=== PATIENT | female | born 1970 | race Caucasian/White ===

== ENCOUNTER → 2020-07-06 11:36 | Outpatient (CLI) | payer OTHER, SELFPAY ==
--- NOTE | 2020-07-06 11:38 | DI.US.S_ITS ---
PROCEDURE: US PELVIC COMPLETE INDICATIONS: Pelvic pain and hematuria, reported uterine ablation approximately 18 months ago. TECHNIQUE: Real-time scanning was performed of the pelvic organs, with image documentation. Additional endovaginal scanning was necessary due to incomplete visualization of the adnexal and endometrial structures by transabdominal scanning. COMPARISON: None. FINDINGS: Uterus: Uterus is normal in size at 6.2 x 6.8 x 7.8 cm. The endometrium does not demonstrate a normal morphology, associated with history of prior endometrial ablation. Mildly echogenic Alman genius material within the endometrial canal measures up to 2.9 x 3.2 x 5.2 cm. There is peripheral blood flow around this material but not within. Its exact etiology is indeterminate. Ovaries: The right ovary measures 3.1 x 1.7 x 1.8 cm and the left measures 2.2 x 2.8 x 1.3 cm. There is a follicular cyst on the right measuring 1.7 cm. Other: No pathologic free abdominal or pelvic fluid. IMPRESSION: Homogeneous hyperechoic material within the endometrial canal is unusual in appearance despite history of endometrial ablation. This could represent blood clot, and contains no visualized internal blood flow. Urine 2 oz may be warranted. MR scanning with contrast also may be warranted to obtain additional anatomic detail. The likelihood of a single blood clot remaining homogeneous from the original reported endometrial ablation 18 months ago is considered very low. A more recent blood clot could produce this appearance. Dictated by: Derrick Small M.D. on 07/06/2020 at 14:02 Approved by: Derrick Small M.D. on 07/06/2020 at 14:07
--- NOTE | 2020-07-06 11:38 | DI.US.S_ITS ---
PROCEDURE: US RENAL COMPLETE INDICATIONS: Pelvic pain and hematuria TECHNIQUE: Real-time scanning was performed of the kidneys and bladder, with image documentation. COMPARISON: None. FINDINGS: Kidneys: Kidneys are normal in size. Right kidney measures 10.8 cm long; left kidney measures 11.9 cm long. Right renal cortical thickness is 1.4 cm; left renal cortical thickness is 1.6 cm. Renal cortical echotexture is normal. No hydronephrosis or nephrolithiasis. No suspicious solid mass lesions. Bladder: Pre-void bladder volume is 291 mL. Post-void residual is 0 mL. Pre-void images demonstrate no intraluminal masses or stones. On pre-void images, bilateral ureteral jets are noted with color Doppler interrogation. (Of note, ureteral jets may not be detectable in up to 25% of cases due to insufficient differences in specific gravity between ureteral and bladder urine). Miscellaneous: No free pelvic fluid. Partially visualized liver mass is noted. IMPRESSION: 1. No visualized obstruction or stones. 2. Partially visualized liver mass. If further evaluation of this region is required, abdominal ultrasound or CT abdomen is recommended. Dictated by: Yamileth Velasquez M.D. on 07/06/2020 at 12:13 Approved by: Yamileth Velasquez M.D. on 07/06/2020 at 13:22
[2020-07-06 13:34] LABS: TSH w/ Reflex to FT4 1.76 uIU/mL (0.47-4.68)
[2020-07-06 15:43] LABS: Follicle Stimulating Hormone 7.61 mIU/mL
== END ==
PROVIDERS: PCP Family Medicine; Referring Provider Family Medicine; Visit Provider Family Medicine
DX: N91.2 Amenorrhea, unspecified (principal); R10.2 Pelvic and perineal pain; R31.9 Hematuria, unspecified
CPT/HCPCS: 36415; 76770; 76830; 76856; 83001; 83002; 84443

== ENCOUNTER → 2020-11-18 08:03 | Outpatient (CLI) | payer OTHER, SELFPAY ==
[2020-11-18 09:08] LABS: COVID19 -Nasal RAPID Negative (Negative)
== END ==
PROVIDERS: PCP Family Medicine; Visit Provider Obstetrics & Gynecology
DX: Z01.812 Encounter for preprocedural laboratory examination (principal); Z20.822 Contact with and (suspected) exposure to COVID-19
CPT/HCPCS: 87635

== ENCOUNTER 2020-11-18 08:14 | Day surgery (SDC) | payer OTHER, SELFPAY ==
[2020-11-12 14:30] VITALS: BMI 30.2
[2020-11-18] VITALS (17 sets, daily range): BP systolic 106–138; BP diastolic 60–83; PULSE 69–98; RESP 8–96; TEMP 36.4–36.8; O2SAT 10–99; BMI 30.2
--- NOTE | 2020-11-18 | PATH_ITS ---
[facility] Accession Number: [id number] . 01 Material submitted: . uterus - UTERUS AND BILATERAL FALLOPIAN TUBES . 02 Diagnosis: Uterus and Bilateral Fallopian Tubes, Laparoscopic Supracervical Hysterectomy and Bilateral Salpingectomy (Weight 42 grams): Portions of disordered proliferative endometrium; negative for glandular hyperplasia, cytologic atypia, or malignancy. Myometrium with no significant histomorphologic abnormality. Uterine serosa with no significant histomorphologic abnormality. Fallopian tubes x2 with scattered benign paratubal cysts (1-5 mm); negative for atypia or malignancy. [facility] 11/22/2020 1309 Local . 02 Electronically signed: . Fransisca Solorzano MD, Pathologist NPI- [id number] . 01 Gross description: . The specimen is received in formalin, labeled uterus and both tubes and consists of a morcellated uterus weighing 42 grams and measuring 12.0 x 11.0 x 4.5 cm in aggregate. A cervix is not identified. The serosa is velez-pink and smooth. The velez-pink endometrium measures 0.1 cm in thickness. The myometrium is velez-pink and trabeculated. Also received are two detached fallopian tubes measuring 6.0 cm in length by 0.8 cm in diameter and 7.9 cm in length by 1.0 cm in diameter. The serosa is velez-pink to pink-purple and smooth with multiple paratubal cysts ranging from 0.1-0.5 cm. Sectioning reveals velez-pink mucosa and a stellate lumen measuring 0.3 cm in diameter. Wardrobe Specialist sections are submitted. . A1-A4: Wardrobe Specialist uterus. A5: [place] fallopian tubes, central cross sections and bisected fimbria. A6-A7: Longer fallopian tube, central cross sections and bisected fimbria. (EA:[id number]) /MRV 11/19/2020 1109 Local . 02 Pathologist provided ICD-10: N99.85, N94.6 . 02 CPT . 780623 Performed at: 01 [facility] [address] [id number] MD Jaquan Bernal MD Phone: [phone] Performed at: [address] [place] [id number] [place] [id number] MD Guillermina Fischer MD Phone: [phone]
--- NOTE | 2020-11-18 09:12 | PM.PREOP ---
Pre-operative Note COVID-19 COVID-19 status: Negative Result date/Date tested (Pos, Neg/Pending): 11/18/20 Interval Note History & Physical reviewed/Exam performed by Physician: Yes Changes to H&P: No H&P completed within 30 days and has changed as indicated here:: 11/17/20
[2020-11-18] MEDS: LACTATED RINGERS 1,000 ML 100 ML IV ×2 (09:54→11:30)
[2020-11-18] MEDS: CEFAZOLIN VIAL 2 GM in SODIUM CHLORIDE 0.9% 100 ML 200 ML IV (10:15)
[2020-11-18] MEDS: BUPIVACAINE 0.5% (PF) VIAL 30 ML INJ (10:46)
[2020-11-18] MEDS: EPINEPHrine 1 MG/ML 0.15 MG INJ (10:47)
--- NOTE | 2020-11-18 10:49 | SUR.OPER ---
Lithotomy on padded OR bed. [place] Pad Positioner under torso. Head on pillow, arms padded and tucked at sides. Legs secured in padded yellow fins stirrups.
[2020-11-18] MEDS: ROPIVACAINE 0.2% PF 2 MG/ML 10ML AMP 20 ML INJ (10:53)
[2020-11-18] MEDS: fentaNYL 100 MCG/2 ML INJ IV ×2 (12:03→12:11)
--- NOTE | 2020-11-18 12:08 | SUR.PHASEI ---
Patient from OR at [address] Barajas on room air in bed after general anesthesia. Breathing unassisted. Check in by Evelyn Licea RN and this Rn assumed care at 1155 with anesth still at bedside.
--- NOTE | 2020-11-18 12:08 | PM.GYNOP.1 ---
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 Pelvic pain Post-op diagnosis: same Procedure & Clinicians Procedure: Procedures Operation Date: 11/18/20 09:45 Actual Procedure Side Surgeon p Laparoscopic Supracervical Hysterectomy & bilateral salpingectomy Graciela Thurman MD Indications: Severe dysmenorrhea Pelvic pain Post endometrial ablation syndrome Surgeon: Graciela Thurman Correspondence Analyst: Devan Giron Anesthesia Type: General and Local Operative Notes Findings: 8 week size anteverted uterus Normal tubes and ovaries Normal liver and gallbladder Normal appendix Closure Type: primary Specimen(s): left tube, right tube and uterus Applied: catheter (Removed at the end of the case) Estimated blood loss (mL): 25 Blood products transfused: none Procedure in detail: The patient was taken to the operating room where she was placed in the dorsal supine position. After adequate general endotracheal anesthesia was achieved, she was placed in the dorsal lithotomy position, and prepped and draped in the usual sterile fashion. A timeout was performed. A bivalve speculum was placed into the vagina and the anterior lip of the cervix grasped with a single-tooth tenaculum. The cervical os was sequentially dilated until the ZUMI uterine manipulator could pass easily into the endometrial cavity. The single-tooth tenaculum was removed from the anterior lip of the cervix, and the bivalve speculum was removed from the vagina. Attention was then turned to the abdomen where 6 mL of half percent Marcaine with epinephrine were injected in the umbilical fold. A 5 mm incision was made. The Verhees needle was placed into the peritoneal cavity, and its placement confirmed by aspiration and drop test. The Verhees needle was removed. A 5 mm trocar was placed without difficulty. 2 other incisions were made midway between the pubic symphysis and umbilicus after 5 mL of half percent Marcaine with epinephrine were injected. These were 5 mm incisions. Two 5 mm trochars were placed under direct visualization. The right tube was grasped with an atraumatic grasper. Using the plasma kinetic with settings of 40 W the mesosalpinx was cauterized and cut all the way down to the cornua of the uterus. The cornua of the uterus was then grasped with an atraumatic grasper. The utero-ovarian ligaments were cauterized and cut. The round ligament and broad ligament was cauterized and cut with plasma kinetic. Hemostasis was achieved. The bladder flap was created using the plasma kinetic with cautery and cut care home across. The uterine arteries on the right side were extensively cauterized with plasma kinetic. All of this was repeated on the left side. The remainder of the bladder flap was created using the plasma kinetic, and the bladder taken down off the lower uterine segment and cervix. Using the [place], the cervix was amputated from the uterus 2 cm above the uterosacral ligaments, after the ZUMI uterine manipulator was removed from the uterus. There was a small amount of bleeding noted from the posterior edge of the cervix, and this was cauterized for hemostasis. A sponge stick was placed into the vagina. 6 mL of half percent Marcaine with epinephrine were injected above the pubic symphysis. A 12 mm trocar was placed. An Endobag was placed through the suprapubic trocar and the uterus and tubes were placed into the Endobag. The trocar was removed. The Arley was placed into the endobag. The uterus was hand morcellated in approximately 10 pieces. The Endobag was removed from the peritoneal cavity. The pelvis was copiously irrigated with warm normal saline. No bleeding was noted. 20 cc of 0.2% ropivacaine were placed over the pedicles. The instruments were removed from the abdomen. The CO2 was allowed to escape. The suprapubic incision was closed on the fascia with 0 Vicryl. All of the incisions were closed with 4-0 Biosyn in a subcuticular fashion. The moistened sponge stick was removed from the vagina. Sponge, lap, and instrument counts were correct x-2. The patient tolerated the procedure well, and was taken to PACU in stable condition. Complications: none Post-operative Condition: stable Disposition: PACU Plan for aftercare: Home after recovery
--- NOTE | 2020-11-18 12:13 | SUR.PHASEI ---
Dr Barajas to bedside. Updated on patient pain level 10/19. See new order for Dilaudid IV
[2020-11-18] MEDS: ACETAMINOPHEN 325 MG TABLET 650 MG PO (12:25)
[2020-11-18] MEDS: OXYCODONE IR 5 MG TABLET PO ×2 (12:26→12:58)
[2020-11-18] MEDS: HYDROMORPHONE 2 MG INJ IV ×8 (12:30→13:54)
[2020-11-18] MEDS: ONDANSETRON 4 MG/2 ML INJ IV (13:20)
--- NOTE | 2020-11-18 16:14 | SUR.PHASEII ---
Late entry: Pt assisted to BR, steady when up, no bleeding on peripad, no extension of drainage on dressings. Voided. Left whn ready left in stable condition. D/c done by BECKIE Hudson
--- NOTE | 2020-11-18 16:27 | PC.NURSE ---
Discharged from PACU by PRINT PRODUCTION MANAGER, orders not acknowledged. This RN removed patient from room according to time of departure. Patient was not physically in room 213 at discharge.
== END 2020-11-18 14:45 | disposition home or self-care (01) ==
LOC: OR 08:19 → AC 08:21
PROVIDERS: PCP Physician Assistant Medical; Referring Provider Obstetrics & Gynecology; Visit Provider Obstetrics & Gynecology
PROC: 0UT94ZL Resection of Uterus, Supracervical, Percutaneous Endoscopic Approach (ICD-10-PCS; CPT 58542; principal; 2020-11-18 09:45)
DX: N99.85 Post endometrial ablation syndrome (principal); N94.6 Dysmenorrhea, unspecified; Z20.822 Contact with and (suspected) exposure to COVID-19; Z34.83 Encounter for supervision of other normal pregnancy, third trimester; Z3A.37 37 weeks gestation of pregnancy; N83.8 Other noninflammatory disorders of ovary, fallopian tube and broad ligament
CPT/HCPCS: 58542; 87635; J0171; J0690; J1100; J1170; J1885; J2405; J2704; J2795; J3010

== ENCOUNTER → 2020-12-16 19:49 | Outpatient (CLI) | payer OTHER, SELFPAY | PROVIDERS: PCP Physician Assistant Medical; Referring Provider Internal Medicine; Visit Provider Internal Medicine | DX: Z23 Encounter for immunization (principal) | CPT/HCPCS: 90471; 90686 ==

== ENCOUNTER → 2021-04-07 11:21 | Outpatient (CLI) | payer OTHER, SELFPAY ==
[2021-04-07 21:35] LABS: Adenovirus Not Detected (Not Detect); B. parapertussis Not Detected (Not Detecte); Bordetella pertussis Not Detected (Not Detecte); Chlamydophila pneumoniae Not Detected (Not Detect); Coronavirus 229E Not Detected (Not Detect); Coronavirus HKU1 Not Detected (Not Detect); Coronavirus NL 63 Not Detected (Not Detect); Coronavirus OC43 Not Detected (Not Detect); Human Metapneumovirus Not Detected (Not Detect); Human Rhinovirus/Enterovirus Not Detected (Not Detect); Influenza A Not Detected (Not Detect); Influenza B Not Detected (Not Detect); Mycoplasma pneumoniae Not Detected (Not Detect); Parainfluenza Virus 1 Not Detected (Not Detect); Parainfluenza Virus 2 Not Detected (Not Detect); Parainfluenza Virus 3 Not Detected (Not Detect); Parainfluenza Virus 4 Not Detected (Not Detect); Respiratory Syncytial Virus Not Detected (Not Detect); SARS- CoV-2 Detected (Not Detecte)
== END ==
PROVIDERS: PCP Physician Assistant Medical; Referring Provider Family Medicine; Visit Provider Family Medicine
DX: R05.8 Other specified cough (principal); Z20.822 Contact with and (suspected) exposure to COVID-19
CPT/HCPCS: 87633

== ENCOUNTER → 2021-08-03 08:36 | Outpatient (CLI) | payer OTHER, SELFPAY ==
--- NOTE | 2021-08-03 09:30 | DI.MG.S_ITS ---
BILATERAL DIGITAL SCREENING MAMMOGRAM 3D/2D WITH CAD: 08/03/2021 CLINICAL: Routine screening. Comparison is made to exam dated: 11/03/2019, 03/14/2018, 02/15/2016 mammogram. There are scattered fibroglandular elements in both breasts. Current study was also evaluated with a Computer Aided Detection (CAD) system. No significant masses, calcifications, or other findings are seen in either breast. There has been no significant interval change. IMPRESSION: NEGATIVE There is no mammographic evidence of malignancy. A 1 year screening mammogram is recommended. This exam was interpreted at Station ID: [id number]. NOTE: For mammograms, a report in lay terms will be sent to the patient. Approximately 15% of breast malignancies will not be visualized mammographically. In the management of a palpable breast mass, a negative mammogram must not discourage biopsy of a clinically suspicious lesion. Electronically Signed By: Alejandro Hernández M.D. [facility] [place] [place]/:08/03/2021 09:39:30 letter sent: Normal Exam ACR BI-RADS Category 1: Negative [id number]
== END ==
PROVIDERS: PCP Physician Assistant Medical; Referring Provider Obstetrics & Gynecology; Visit Provider Physician Assistant Medical
DX: Z12.31 Encounter for screening mammogram for malignant neoplasm of breast (principal)
CPT/HCPCS: 77063; 77067

== ENCOUNTER → 2021-12-29 09:41 | Outpatient (CLI) | payer OTHER, SELFPAY ==
[2021-12-29 19:41] LABS: Add Manual Diff / Slide Review NO; Basophils Absolute Auto 0 /uL (0-100); Basophils Percent Auto 0.6 % (0-2); Eosinophils Absolute Auto 200 /uL (0-450); Eosinophils Percent Auto 3.1 % (2-4); Hematocrit 40.8 % (36-46); Hemoglobin 14.2 g/dL (12.0-16.0); Lymphocytes Absolute Auto 2200 /uL (1100-4500); Lymphocytes Percent Auto 34.1 % (25-40); Mean Corpuscular HGB Conc 34.8 % (30-36); Mean Corpuscular Hemoglobin 30.5 PG (26-34); Mean Corpuscular Volume 87.5 fL (80-100); Monocytes Absolute Auto 400 /uL (0-900); Monocytes Percent Auto 6.6 % (3-14); Neutrophils Absolute Auto 3500 /uL (1500-7000); Neutrophils Percent Auto 55.6 % (50-75); Platelet Count 188 X10^3/uL (150-400); Red Blood Cell Count 4.66 X10^6/uL (4.0-5.2); Red Cell Distribution Width 12.9 % (11.6-14.8); White Blood Cell Count 6.3 X10^3/uL (4.5-11.0)
[2021-12-29 20:03] LABS: Alanine Aminotransferase 59 IU/L (<35); Albumin 4.5 g/dL (3.5-5.0); Albumin Globulin Ratio 1.6 (1.0-2.8); Alkaline Phosphatase 74 U/L (38-126); Aspartate Aminotransferase 44 IU/L (14-36); BUN Creatinine Ratio 18.6 (6-22); Bilirubin Total 0.9 mg/dL (0.2-1.3); Blood Urea Nitrogen 13 mg/dL (7-17); Calcium 9.1 mg/dL (8.4-10.2); Carbon Dioxide 23 mmol/L (22-32); Chloride 102 mmol/L (98-107); Cholesterol 222 mg/dL (140-199); Estimated Glomerular Filt Rate > 60 mL/min (>60); Globulin 2.9 g/dL (1.7-4.1); Glucose 108 mg/dL (70-100); HDL Cholesterol 46 mg/dL (40-60); HEMOLYSIS < 15 (0-50); LDL Cholesterol Calculated 153 mg/dL (<100); Potassium 4.3 mmol/L (3.4-5.1); Sodium 137 mmol/L (137-145); Total Protein 7.4 g/dL (6.3-8.2); Triglycerides 117 mg/dL (35-150)
[2021-12-29 20:25] LABS: Vitamin D 25 Hydroxy (D3) 36.2 ng/mL (30.0-100.0)
[2021-12-29 20:40] LABS: TSH w/ Reflex to FT4 1.96 uIU/mL (0.47-4.68)
[2021-12-29 20:51] LABS: Vitamin B12 375 pg/mL (239-931)
[2021-12-30 09:42] LABS: Hemoglobin A1C% w Est Avg Glu 5.7 % (4.0-6.0)
== END ==
PROVIDERS: PCP Physician Assistant Medical; Visit Provider Physician Assistant Medical
DX: E53.8 Deficiency of other specified B group vitamins (principal); R79.89 Other specified abnormal findings of blood chemistry
CPT/HCPCS: 80053; 80061; 82306; 82607; 83036; 84443; 85025

== ENCOUNTER → 2021-12-29 16:25 | Outpatient (CLI) | payer OTHER, SELFPAY | PROVIDERS: PCP Physician Assistant; Referring Provider Internal Medicine; Visit Provider Internal Medicine | DX: Z23 Encounter for immunization (principal) | CPT/HCPCS: 90471; 90686 ==

== ENCOUNTER → 2022-01-14 10:43 | Outpatient (CLI) | payer OTHER, SELFPAY ==
--- NOTE | 2022-01-14 10:45 | DI.CT.S_ITS ---
PROCEDURE: CT ABDOMEN LIVER PROTOCOL INDICATIONS: mass noted on renal US in 06/2020; w/ elevated liver enzymes TECHNIQUE: 4 phase scanning was performed. Non-contrast 5 mm axial sections acquired from the diaphragm to the iliac crests. Following the administration of intravenous contrast, 5 mm thick arterial-phase, portal venous-phase, and 5-minute delayed phase images were acquired through the liver. 5 mm thick coronal and sagittal reformats were performed. For radiation dose reduction, the following was used: automated exposure control, adjustment of mA and/or kV according to patient size. COMPARISON: [facility], US, US RENAL COMPLETE, 07/06/2020, 11:10. FINDINGS: Image quality: Excellent. Lung bases: Lung bases are clear. Heart size is normal. Liver: Within segment 6, there is an irregular lesion that measures approximately 7.4 x 6 cm in greatest axial dimension. On the arterial phase imaging, there is minimal rim enhancement seen. On the venous phase imaging, there is peripheral puddling of contrast, with centripetal filling in of contrast on the delayed images. The liver overall is mildly prominent in size and demonstrates diffuse fatty infiltration. Other solid organs: Gallbladder demonstrates gallstones within its lumen. Biliary system is non dilated. Pancreas is normal in morphology. Spleen is normal in size and enhancement. No adrenal nodules. Both kidneys demonstrate normal size and enhancement, without hydronephrosis or nephrolithiasis. Nodes and vessels: No retroperitoneal or mesenteric adenopathy by size criteria. Aorta and inferior vena cava are normal in size. Bowel and peritoneum: Unenhanced bowel loops are normal in caliber. No free fluid or air. Bones: No suspicious bony lesions. No vertebral body compression fractures. Focal L4-L5 degenerative change is seen. Miscellaneous: No ventral hernias. IMPRESSION: The liver lesion is most compatible with a large hemangioma. The liver is prominent in size and demonstrates diffuse fatty infiltration. Incidental note is made of: Gallstones Focal L4-L5 degenerative change Dictated by: Lance Weaver M.D. on 01/15/2022 at 16:01 Approved by: Lance Weaver M.D. on 01/15/2022 at 16:05
== END ==
PROVIDERS: PCP Physician Assistant; Referring Provider Physician Assistant; Visit Provider Physician Assistant
DX: K76.9 Liver disease, unspecified (principal); K76.0 Fatty (change of) liver, not elsewhere classified; K80.20 Calculus of gallbladder without cholecystitis without obstruction; M47.816 Spondylosis without myelopathy or radiculopathy, lumbar region
CPT/HCPCS: 74170; Q9967

== ENCOUNTER → 2022-05-03 08:08 | Outpatient (CLI) | payer OTHER, SELFPAY ==
[2022-05-03 19:05] LABS: Alanine Aminotransferase 69 IU/L (<35); Albumin 4.3 g/dL (3.5-5.0); Albumin Globulin Ratio 1.5 (1.0-2.8); Alkaline Phosphatase 78 U/L (38-126); Aspartate Aminotransferase 39 IU/L (14-36); BUN Creatinine Ratio 14.5 (6-22); Bilirubin Total 0.5 mg/dL (0.2-1.3); Blood Urea Nitrogen 10 mg/dL (7-17); Calcium 9.2 mg/dL (8.4-10.2); Carbon Dioxide 27 mmol/L (22-32); Chloride 102 mmol/L (98-107); Estimated Glomerular Filt Rate > 60 mL/min (>60); Globulin 2.9 g/dL (1.7-4.1); Glucose 106 mg/dL (70-100); Glucose 107 mg/dL (70-100); HEMOLYSIS < 15 (0-50); Potassium 4.2 mmol/L (3.4-5.1); Sodium 139 mmol/L (137-145); Total Protein 7.2 g/dL (6.3-8.2)
[2022-05-03 19:08] LABS: Hemoglobin A1C% w Est Avg Glu 5.9 % (4.0-6.0)
[2022-05-03 19:35] LABS: Cortisol AM (Before 10AM) 9.11 ug/dL (4.46-22.7)
[2022-05-05 07:10] LABS: Insulin Level Total 14.2 uIU/mL (2.6-24.9)
== END ==
PROVIDERS: PCP Physician Assistant; Visit Provider Family Medicine
DX: Z13.1 Encounter for screening for diabetes mellitus (principal); R73.9 Hyperglycemia, unspecified; R74.8 Abnormal levels of other serum enzymes
CPT/HCPCS: 80053; 82533; 82947; 83036; 83525

== ENCOUNTER → 2022-08-15 09:11 | Outpatient (CLI) | payer OTHER, SELFPAY ==
--- NOTE | 2022-08-15 09:12 | DI.MRI.S_ITS ---
PROCEDURE: MR ABDOMEN LIVER PROTOCOL INDICATIONS: Liver hemangioma 7.4 x [address] 01/2022 TECHNIQUE: Coronal HASTE, axial 2D FLASH in- and [id number]; axial breath-hold T2 FSE. Dynamic axial VIBE during the administration of contrast; post-contrast coronal VIBE or 2D FLASH with fat saturation from the hepatic dome to the iliac crests. Optional diffusion weighted imaging and ADC may be performed. COMPARISON: [facility], CT, CT ABDOMEN LIVER PROTOCOL, 01/14/2022, 11:40. FINDINGS: Image quality: Excellent. Lung bases: No basal pleural effusions. Heart size is normal. Liver: 9.2 x 6.6 x 7.7 cm circumscribed, gently lobulated mass in the inferior aspect of segment six demonstrates mildly increased T2 signal, moderately decreased T1 signal, and centrally contains fluid signal. Arterial phase post-contrast demonstrates minimal peripheral nodular enhancement inferiorly. Gradual peripheral nodular enhancement on the venous phase, and more characteristic patchy peripheral enhancement on the delayed phase. No other liver lesions. Mild diffuse signal drop on T1 out of phase imaging suggesting diffuse steatosis. Other Solid organs: Gallbladder is decompressed around three discrete large stones. No gallbladder wall thickening or pericholecystic fluid.. Biliary system is non dilated. Pancreas is normal in morphology. Spleen is normal in size and enhancement. No adrenal nodules. Both kidneys demonstrate normal size and enhancement, without hydronephrosis. Nodes and vessels: No retroperitoneal or mesenteric adenopathy by size criteria. Aorta and inferior vena cava are normal in size. Bowel and peritoneum: Unenhanced bowel loops are normal in caliber. No free fluid. Bones and soft tissues: No ventral hernias. Bone marrow is normal in overall signal. IMPRESSION: 1. Mild increase in size of a benign cavernous hepatic hemangioma in the right lobe of the liver compared to the prior CT. 2. No other liver lesions. 3. Cholelithiasis. Dictated by: Marge Armstrong M.D. on 08/15/2022 at 11:45 Approved by: Marge Armstrong M.D. on 08/15/2022 at 11:52
== END ==
PROVIDERS: PCP Family Medicine; Referring Provider Physician Assistant; Visit Provider Physician Assistant
DX: D18.03 Hemangioma of intra-abdominal structures (principal); K80.20 Calculus of gallbladder without cholecystitis without obstruction; R74.8 Abnormal levels of other serum enzymes; R16.0 Hepatomegaly, not elsewhere classified
CPT/HCPCS: 74183; A9579

== ENCOUNTER → 2022-12-13 14:56 | Outpatient (CLI) | payer OTHER, SELFPAY | PROVIDERS: PCP Family Medicine; Referring Provider Family Medicine; Visit Provider Family Medicine | DX: Z23 Encounter for immunization (principal) | CPT/HCPCS: 90471; 90686 ==

== ENCOUNTER → 2022-12-14 08:50 | Outpatient (CLI) | payer OTHER, SELFPAY ==
--- NOTE | 2022-12-14 08:51 | DI.MG.S_ITS ---
BILATERAL DIGITAL SCREENING MAMMOGRAM 3D/2D WITH CAD: 12/14/2022 CLINICAL: Routine screening. Comparison is made to exams dated: 08/03/2021 mammogram - [facility] and 11/03/2019 mammogram - outside location. There are scattered areas of fibroglandular density in both breasts (category b / 25%-50% glandular tissue). Current study was also evaluated with a Computer Aided Detection (CAD) system. No significant masses, calcifications, or other findings are seen in either breast. There has been no significant interval change. IMPRESSION: NEGATIVE There is no mammographic evidence of malignancy. A 1 year screening mammogram is recommended. Based on the Tyrer Cuzick model (a risk assessment model) the patient's lifetime risk is 10.1% and her 10 year risk is 2.4%. According to the ACR, ACS, and NCCN guidelines, an annual breast MRI exam along with mammogram is recommended if the patient's lifetime risk is 20% or greater. This exam was interpreted at Station ID: [id number]. NOTE: For mammograms, a report in lay terms will be sent to the patient. Approximately 15% of breast malignancies will not be visualized mammographically. In the management of a palpable breast mass, a negative mammogram must not discourage biopsy of a clinically suspicious lesion. Electronically Signed By: Yamileth dennis/joseph:12/14/2022 16:34:38 copy to: Guillermina Harman letter sent: Normal Exam ACR BI-RADS Category 1: Negative 3341F
== END ==
PROVIDERS: PCP Family Medicine; Referring Provider Family Medicine; Visit Provider Family Medicine
DX: Z12.31 Encounter for screening mammogram for malignant neoplasm of breast (principal)
CPT/HCPCS: 77063; 77067

== ENCOUNTER → 2023-05-08 09:35 | Outpatient (CLI) | payer OTHER, SELFPAY ==
[2023-05-08 19:11] LABS: Alanine Aminotransferase 40 IU/L (<35); Albumin 4.3 g/dL (3.5-5.0); Albumin Globulin Ratio 1.5 (1.0-2.8); Alkaline Phosphatase 69 U/L (38-126); Aspartate Aminotransferase 32 IU/L (14-36); Bilirubin Unconjugated 0.7 mg/dL (0.0-1.1); Cholesterol 221 mg/dL (140-199); Globulin 2.8 g/dL (1.7-4.1); HDL Cholesterol 49 mg/dL (40-60); HEMOLYSIS < 15 (0-50); LDL Cholesterol Calculated 145 mg/dL (<100); Total Protein 7.1 g/dL (6.3-8.2); Triglycerides 135 mg/dL (35-150)
[2023-05-08 19:22] LABS: Follicle Stimulating Hormone 29.5 mIU/mL; Luteinizing Hormone 18.4 mIU/mL
== END ==
PROVIDERS: PCP Family Medicine; Visit Provider Family Medicine
DX: R23.2 Flushing (principal); R74.8 Abnormal levels of other serum enzymes; R73.9 Hyperglycemia, unspecified; N95.1 Menopausal and female climacteric states; E78.2 Mixed hyperlipidemia
CPT/HCPCS: 80061; 80076; 83001; 83002; 83036; 84443

== ENCOUNTER → 2023-05-09 07:56 | Outpatient (CLI) | payer OTHER, SELFPAY ==
[2023-05-09 08:18] LABS: Add Manual Diff / Slide Review NO; Basophils Absolute Auto 100 /uL (0-100); Basophils Percent Auto 0.9 % (0-2); Eosinophils Absolute Auto 400 /uL (0-450); Eosinophils Percent Auto 6.2 % (2-4); Hematocrit 43.1 % (36-46); Hemoglobin 14.7 g/dL (12.0-16.0); Lymphocytes Absolute Auto 2600 /uL (1100-4500); Mean Corpuscular HGB Conc 34.1 % (30-36); Mean Corpuscular Hemoglobin 29.8 PG (26-34); Mean Corpuscular Volume 87.4 fL (80-100); Monocytes Absolute Auto 400 /uL (0-900); Monocytes Percent Auto 5.3 % (3-14); Neutrophils Absolute Auto 3500 /uL (1500-7000); Neutrophils Percent Auto 50.6 % (50-75); Platelet Count 228 X10^3/uL (150-400); Red Blood Cell Count 4.93 X10^6/uL (4.0-5.2); Red Cell Distribution Width 14.1 % (11.6-14.8); White Blood Cell Count 6.9 X10^3/uL (4.5-11.0)
== END ==
PROVIDERS: PCP Family Medicine; Visit Provider Family Medicine
DX: J45.40 Moderate persistent asthma, uncomplicated (principal)
CPT/HCPCS: 85025

== ENCOUNTER → 2023-10-29 10:28 | Outpatient (CLI) | payer BC, SELFPAY ==
--- NOTE | 2023-10-29 11:05 | DI.MRI.S_ITS ---
PROCEDURE: MR ABDOMEN LIVER PROTOCOL INDICATIONS: Enlarging lesion in liver, elevated LFTs TECHNIQUE: Coronal HASTE, axial 2D FLASH in- and [id number]; axial breath-hold T2 FSE. Dynamic axial VIBE during the administration of contrast; post-contrast coronal VIBE or 2D FLASH with fat saturation from the hepatic dome to the iliac crests. Optional diffusion weighted imaging and ADC may be performed. COMPARISON: [facility], , MR ABDOMEN LIVER PROTOCOL, 08/15/2022, 9:40. FINDINGS: Image quality: Diagnostic. Lung bases: Unremarkable. Liver: No solid mass. Interval growth the inferior right hepatic lobe hemangioma measuring 6.1 x 9.0 x 10.4 centimeters, previously 6.6 x 7.7 x 9.2 centimeter. Severe hepatic steatosis. Gallbladder: No gallstones or wall thickening. Biliary ducts: No biliary dilation. Pancreas: No ductal dilation. Spleen: Size is within normal limits. Adrenal Glands: No adrenal nodules. Kidneys and Ureters: No hydronephrosis. No solid mass. No complex renal cystic lesion which requires follow up. Stomach and Bowel: Normal colonic caliber, without significant wall thickening. Peritoneum: No abnormal intraperitoneal fluid. No free air. Ventral Wall: No hernia. Abdominal Nodes: No retroperitoneal or mesenteric adenopathy by size criteria. Vessels: Aorta and inferior vena cava are normal in size. Bones: No aggressive osseous abnormality. IMPRESSION: Slight interval growth of the joint hemangioma of the right hepatic lobe, measuring up to 10.4 centimeters, previously 9.2 centimeters. Consider surgical referral. Dictated by: Ajay Blanco M.D. on 10/29/2023 at 14:50 Approved by: Ajay Balnco M.D. on 10/29/2023 at 14:53
== END ==
LOC: MRI 10:28
PROVIDERS: PCP Family Medicine; Referring Provider Family Medicine; Visit Provider Family Medicine
DX: K80.20 Calculus of gallbladder without cholecystitis without obstruction (principal); R74.8 Abnormal levels of other serum enzymes; D18.03 Hemangioma of intra-abdominal structures; K76.0 Fatty (change of) liver, not elsewhere classified
CPT/HCPCS: 74183; A9579

== ENCOUNTER → 2023-12-27 13:52 | Outpatient (CLI) | payer OTHER, SELFPAY | PROVIDERS: PCP Family Medicine; Visit Provider Family Medicine | DX: J45.40 Moderate persistent asthma, uncomplicated (principal) | CPT/HCPCS: 82785; 86003 ==

== ENCOUNTER → 2024-01-04 11:27 | Outpatient (CLI) | payer OTHER, SELFPAY ==
--- NOTE | 2024-01-04 11:28 | DI.MG.S_ITS ---
BILATERAL DIGITAL SCREENING MAMMOGRAM 3D/2D WITH CAD: 01/04/2024 CLINICAL: Routine screening. Comparison is made to exams dated: 12/14/2022 mammogram, 08/03/2021 mammogram - [facility], and 11/03/2019 mammogram - outside location. There are scattered areas of fibroglandular density (category b / 25%-50% glandular tissue). Current study was also evaluated with a Computer Aided Detection (CAD) system. No significant masses, calcifications, or other findings are seen in either breast. There has been no significant interval change. IMPRESSION: NEGATIVE There is no mammographic evidence of malignancy. A 1 year screening mammogram is recommended. Based on the Tyrer Cuzick model (a risk assessment model) the patient's lifetime risk is 9.9% and her 10 year risk is 2.6%. According to the ACR, ACS, and NCCN guidelines, an annual breast MRI exam along with mammogram is recommended if the patient's lifetime risk is 20% or greater. This exam was interpreted at Station ID: [id number]. NOTE: For mammograms, a report in lay terms will be sent to the patient. Approximately 15% of breast malignancies will not be visualized mammographically. In the management of a palpable breast mass, a negative mammogram must not discourage biopsy of a clinically suspicious lesion. Electronically Signed By: Alejandro byrd/joseph:01/04/2024 17:02:39 copy to: Guillermina Harman letter sent: Normal Exam ACR BI-RADS Category 1: Negative
== END ==
PROVIDERS: PCP Family Medicine; Referring Provider Nurse Practitioner Adult Health; Visit Provider Nurse Practitioner Adult Health
DX: Z12.31 Encounter for screening mammogram for malignant neoplasm of breast (principal)
CPT/HCPCS: 77063; 77067

== ENCOUNTER → 2024-12-11 09:12 | Outpatient (CLI) | payer OTHER, SELFPAY ==
[2024-12-11 18:36] LABS: Add Manual Diff / Slide Review NO; Hematocrit 40.3 % (36-46); Hemoglobin 14.1 g/dL (12.0-16.0); Lymphocytes Absolute Auto 1900 /uL (1100-4500); Mean Corpuscular HGB Conc 35.1 % (30-36); Mean Corpuscular Hemoglobin 30.8 PG (26-34); Mean Corpuscular Volume 87.6 fL (80-100); Platelet Count 201 X10^3/uL (150-400)
[2024-12-11 19:05] LABS: Cholesterol 206 mg/dL (140-199); HDL Cholesterol 47 mg/dL (40-60); Triglycerides 90 mg/dL (35-150)
[2024-12-11 19:14] LABS: Alanine Aminotransferase 22 IU/L (<35); Albumin 4.5 g/dL (3.5-5.0); Albumin Globulin Ratio 1.7 (1.0-2.8); Alkaline Phosphatase 68 U/L (38-126); Blood Urea Nitrogen 17 mg/dL (7-17); Calcium 9.3 mg/dL (8.4-10.2); Carbon Dioxide 21 mmol/L (22-32); Chloride 107 mmol/L (98-107); Estimated Glomerular Filt Rate > 60 mL/min (>60); Globulin 2.6 g/dL (1.7-4.1); Glucose 106 mg/dL (70-99); HEMOLYSIS < 15 (0-50); Hemoglobin A1C% w Est Avg Glu 5.7 % (4.0-6.0); Lipase 58 U/L (23-300); Potassium 4.4 mmol/L (3.4-5.1); Sodium 139 mmol/L (137-145); Total Protein 7.1 g/dL (6.3-8.2)
[2024-12-11 21:37] LABS: Hep C Virus Ab w/Reflex Quant NEGATIVE s/c (NEGATIVE)
[2024-12-12 04:09] LABS: Hepatitis A Antibody IgM Negative (Negative)
[2024-12-13 06:36] LABS: Hepatitis B Surf Ab Qualitativ Reactive (.)
== END ==
PROVIDERS: PCP Family Medicine; Visit Provider Family Medicine
DX: R74.8 Abnormal levels of other serum enzymes (principal); R73.9 Hyperglycemia, unspecified; E78.2 Mixed hyperlipidemia
CPT/HCPCS: 80053; 80061; 83036; 83690; 85025; 86706; 86709; 86803

== ENCOUNTER → 2025-02-25 08:43 | Outpatient (CLI) | payer OTHER, SELFPAY ==
--- NOTE | 2025-02-25 08:44 | DI.MG.S_ITS ---
MM screening mammo BI: 02/25/2025. BI-RADS: 1 CLINICAL: 54-year old female for bilateral screening mammogram. Tyrer-Cuzick lifetime risk of 10.9%. No personal or first-degree family history of breast cancer. PRIOR EXAMS 01/04/2024, 12/14/2022, 08/03/2021. MAMMOGRAPHY TECHNIQUE: 2D and 3D (tomosynthesis) digital mammographic views obtained, with additional images as needed for full coverage. Current study was also evaluated with a Computer Aided Detection (CAD) system. DENSITY B. There are scattered areas of fibroglandular density. MAMMOGRAPHY FINDINGS Bilateral: No suspicious mass, asymmetry, microcalcification, or other abnormality seen. IMPRESSION: * No evidence of malignancy. RECOMMENDATIONS Bilateral * Annual screening mammography. OVERALL ASSESSMENT CATEGORY BI-RADS-1: Negative. The [employer] recommends annual screening mammography beginning at age 40 for women with average risk of breast cancer. ELECTRONICALLY SIGNED: Cristina Freire M.D. on 02/26/2025 at 03:12:29 PM PT Interpreting Station ID: [id number]
== END ==
LOC: MAMMO 08:44
PROVIDERS: PCP Family Medicine; Referring Provider Family Medicine; Visit Provider Family Medicine
DX: Z12.31 Encounter for screening mammogram for malignant neoplasm of breast (principal)
CPT/HCPCS: 77063; 77067